=== PATIENT | female | born 1990 | race African-American/Black ===

== ENCOUNTER 2016-04-27 17:22 | Emergency (ER) | payer OTHER ==
[~2016-04-27] VITALS: Ht 162.6 cm; Wt 50.0 kg
[2016-04-27 17:22] VITALS: BP 127/87; PULSE 83; RESP 16; TEMP 99; O2SAT 98
[~2016-04-27 17:22] MED LIST: BACT800T5 PO; FERR325T PO
[2016-04-27] MEDS ORDERED: SODIUM CHLOR 0.9% 1000 ML INJ 1,000 ML IV ONE (17:46)
[2016-04-27] MEDS ORDERED: TETANUS/DIPHTHERIA TOXOID ADULT 0.5 ML VIAL IM ONE (18:00)
[2016-04-27 18:15] VITALS: BP 132/76; PULSE 75; RESP 18; O2SAT 99
--- NOTE | 2016-04-27 18:27 | PD ---
HPI Chief Complaint: Syncope/Near-Syncope Time Seen by Provider: 18:22 Travel History International Travel<30 days: No Contact w/Intl Traveler<30days: No Traveled to known affect area: No History of Present Illness HPI 25-year-old female that presents to the ED for evaluation of syncopal episode. Patient was brought here by ambulance. Patient was working at [employer] and apparently he was going to the bathroom when she felt very dizzy and lightheaded and last she remembers she woke up on the floor with somebody asking her if she was okay. She denies ever having like this before. Per patient she did that her lower lip. She denies any history of seizures. Per patient she did not eat today. No back pain or neck pain. No arm pain or leg pain. Denies any symptoms other than feeling somewhat weak. She denies any substance abuse. She denies any alcohol abuse. Per patient she was not doing anything exertional today but she did not eat which he attributes to the symptoms. She didn't loss consciousness. Unclear as to how long. Denies taking any blood thinners. Denies . Denies any bleeding. Does not know her last tetanus shot. No allergies to medication. Patient denies any pain at all. PFSH Past Medical History Anemia: Yes Diminished Hearing: No Immunizations Current: Yes ?: Unknown LMP: 04/03/16 Menopausal: No : 1 Para: 1 Past Surgical History Surgical History: No Previous Surgery Social History Alcohol Use: No Tobacco Use: No Substance Use: Yes (marijuana) Allergies-Medications (Allergen,Severity, Reaction): Coded Allergies: No Known Allergies (Verified , 04/27/16) Reported Meds & Prescriptions Reported Meds & Active Scripts Active Keflex (Cephalexin) 500 Mg Cap 500 Mg PO BID 7 Days Review of Systems Except as stated in HPI: all other systems reviewed are Neg Physical Exam Narrative GENERAL: SKIN: Warm and dry. HEAD: Atraumatic. Normocephalic. EYES: Pupils equal and round 4 mm reactive to light and accommodation. No scleral icterus. No injection or drainage. ENT: No nasal bleeding or discharge. Mucous membranes pink and moist. Tongue is midline. No blood deviation. Patient does have a superficial less than half a centimeter laceration to the left lower lip. Slightly bleeding. Slightly tender. NECK: Trachea midline. No JVD. CARDIOVASCULAR: Regular rate and rhythm. No murmurs, S3, S4. RESPIRATORY: No accessory muscle use. Clear to auscultation. Breath sounds equal bilaterally. GASTROINTESTINAL: Abdomen soft, non-tender, nondistended. Hepatic and splenic margins not palpable. MUSCULOSKELETAL: Extremities without clubbing, cyanosis, or edema. No obvious deformities. Full range of motion of the upper and lower x-rays bilaterally. 2 + pulses bilaterally. No cervical, thoracic, lumbar spine tenderness to palpation. NEUROLOGICAL: Awake and alert. No obvious cranial nerve deficits. Motor grossly within normal limits. Five out of 5 muscle strength in the arms and legs. Normal speech. PSYCHIATRIC: Appropriate mood and affect; insight and judgment normal. Data Data Last Documented VS Vital Signs Date Time Temp Pulse Resp B/P Pulse Ox O2 Delivery O2 Flow Rate FiO2 04/27/16 18:15 75 18 132/76 99 Room Air 04/27/16 17:22 99.0 Orders Electrocardiogram (04/27/16 17:46) Basic Metabolic Panel (Bmp) (04/27/16 17:46) Ed Urine Pregnancytest Poc (04/27/16 17:46) Complete Blood Count With Diff (04/27/16 17:46) Magnesium (Mg) (04/27/16 17:46) Urinalysis - C+S If Indicated (04/27/16 17:46) Chest, Single Ap (04/27/16 17:46) Ct Brain W/O Iv Contrast(Rout) (04/27/16 17:46) Iv Access Insert/Monitor (04/27/16 17:46) Sodium Chlor 0.9% 1000 Ml Inj (Ns 1000 M (04/27/16 17:46) Tetanus/Diphtheria Tox Adult (Tetanus/Di (04/27/16 18:00) Urine Culture (04/27/16 18:10) Potassium Chloride (Kcl) (04/27/16 19:15) Labs Laboratory Tests Test 04/27/16 04/27/16 18:00 18:10 White Blood Count 8.7 TH/MM3 Red Blood Count 4.38 MIL/MM3 Hemoglobin 10.3 GM/DL Hematocrit 33.0 % Mean Corpuscular Volume 75.4 FL Mean Corpuscular Hemoglobin 23.4 PG Mean Corpuscular Hemoglobin 31.1 % Concent Red Cell Distribution Width 17.4 % Platelet Count 232 TH/MM3 Mean Platelet Volume 8.2 FL Neutrophils (%) (Auto) 64.2 % Lymphocytes (%) (Auto) 23.4 % Monocytes (%) (Auto) 10.5 % Eosinophils (%) (Auto) 1.4 % Basophils (%) (Auto) 0.5 % Neutrophils # (Auto) 5.6 TH/MM3 Lymphocytes # (Auto) 2.0 TH/MM3 Monocytes # (Auto) 0.9 TH/MM3 Eosinophils # (Auto) 0.1 TH/MM3 Basophils # (Auto) 0.0 TH/MM3 CBC Comment AUTO DIFF Sodium Level 137 MEQ/L Potassium Level 3.3 MEQ/L Chloride Level 106 MEQ/L Carbon Dioxide Level 21.9 MEQ/L Anion Gap 9 MEQ/L Blood Urea Nitrogen 12 MG/DL Creatinine 0.65 MG/DL Estimat Glomerular Filtration 137 ML/MIN Rate Random Glucose 73 MG/DL Calcium Level 8.4 MG/DL Magnesium Level 2.3 MG/DL Urine Color YELLOW Urine Turbidity HAZY Urine pH 5.5 Urine Specific [place] 1.032 Urine Protein 30 mg/dL Urine Glucose (UA) NEG mg/dL Urine Ketones 40 mg/dL Urine Occult Blood NEG Urine Nitrite NEG Urine Bilirubin NEG Urine Urobilinogen 2.0 MG/DL Urine Leukocyte Esterase LARGE Urine WBC 88 /hpf Urine Squamous Epithelial 6 /hpf Cells Urine Bacteria FEW /hpf Urine Mucus MANY /lpf Microscopic Urinalysis Comment CULTURE INDICATED MDM Medical Decision Making Medical Screen Exam Complete: Yes Emergency Medical Condition: Yes Medical Record Reviewed: Yes Interpretation(s) CBC & BMP Diagram 04/27/16 18:00 CT head negative CXR negative UA shows UTI EKG shows sinus rhythm no sign of ischemia or arrhythmia Differential Diagnosis Syncope versus presyncope versus vasovagal episode versus head injury versus laceration to the lower lip versus electrolyte abnormality versus anemia Narrative Course 25-year-old female that presents to the ED for evaluation of syncopal episode. Patient was properly examined and was found to have signs and symptoms consistent appears to be syncopal episode. Likely vasovagal. At this time and do recommend labs and imaging a she's never been here before. She did hit her head when she fell and she does have signs of trauma to the lower lip. I do not suspect seizure. There was no history of seizures on her. This appears to be only from the fall. Patient agrees first proceed. Labs and imaging ordered. Labs and imaging were essentially unremarkable. From history and physical this appears to be a vasovagal episode. Likely from patient not eating. Patient does have a UTI. Patient will be given a prescription for Keflex. Worker's comp people respirated and. Patient was told to keep hydrated. Watch for signs of infection on the cut to the lip. I do not believe the patient requires any suturing and she agrees. Follow closely with PCP. See ED worsening symptoms. Diagnosis Primary Impression: Vaso vagal episode Patient Instructions: General Instructions Additional Instructions: Take medications as prescribed. Drink plenty of fluids. Follow with PCP. See ED worsening symptoms. Med/Other Pt SpecificInfo: Prescription(s) given Scripts Cephalexin (Keflex)500 Mg [id number] Mg PO BID 7 Days Prov:Rich Suggs MD 04/27/16 Disposition: 01 DISCHARGE HOME Condition: Stable Duncan Pearl Apr 27, 2016 18:27
[2016-04-27 18:35] LABS: AUTOMATED NEUTROPHIL # 5.6 TH/MM3 (1.8-7.7); BASOPHIL % 0.5 % (0.0-2.0); EOSINOPHIL # 0.1 TH/MM3 (0-0.4); EOSINOPHIL % 1.4 % (0.0-4.0); LYMPH % 23.4 % (9.0-44.0); MEAN CELL VOLUME 75.4 FL (80.0-100.0); MEAN CORPUSCULAR HEMOGLOBIN 23.4 PG (27.0-34.0); MEAN CORPUSCULAR HGB CONC 31.1 % (32.0-36.0); MONO % 10.5 % (0.0-8.0); NEUT % 64.2 % (16.0-70.0); PLATELET COUNT 232 TH/MM3 (150-450); RED BLOOD COUNT 4.38 MIL/MM3 (4.00-5.30); RED CELL DISTRIBUTION WIDTH 17.4 % (11.6-17.2); WHITE BLOOD COUNT 8.7 TH/MM3 (4.0-11.0)
[2016-04-27 18:50] LABS: BACTERIA, URINE FEW /hpf; BLOOD, URINE NEG (NEG); COMMENT (UR) CULTURE INDICATED; CULTURE IF INDICATED CULTURE INDICATED; GLUCOSE,URINE NEG (NEG); KETONE, URINE 40 mg/dL (NEG); MUCUS URINE MANY /lpf (OCC); NITRITE,URINE NEG (NEG); PH, URINE 5.5 (5.0-8.5); SQUAMOUS EPITHELIAL CELL URINE 6 /hpf (0-5); URINE COLOR YELLOW (YELLW/STRAW)
[2016-04-27 18:52] LABS: BICARBONATE 21.9 MEQ/L (21.0-32.0); MAGNESIUM 2.3 MG/DL (1.5-2.5); POTASSIUM 3.3 MEQ/L (3.5-5.1)
[2016-04-27 18:53] LABS: HEMO FLAGS AUTO DIFF
--- NOTE | 2016-04-27 19:08 | RADRPT ---
EXAM DATE/TIME: 04/27/2016 18:40 [facility] COMPARISON: No previous studies available for comparison. INDICATIONS : Syncopal episode with dizziness. RADIATION DOSE: 56.35 CTDIvol (mGy) MEDICAL HISTORY : None SURGICAL HISTORY : None. ENCOUNTER: Initial ACUITY: 1 day PAIN SCALE: 0/10 LOCATION: cranial TECHNIQUE: Multiple contiguous axial images were obtained of the head. Using automated exposure control and adj ustment of the mA and/or kV according to patient size, radiation dose was kept as low as reasonably a chievable to obtain optimal diagnostic quality images. FINDINGS: CEREBRUM: The ventricles are normal for age. No evidence of midline shift, mass lesion, hemorrhage or acute in farction. No extra-axial fluid collections are seen. POSTERIOR FOSSA: The cerebellum and brainstem are intact. The 4th ventricle is midline. The cerebellopontine angle i s unremarkable. EXTRACRANIAL: The visualized portion of the orbits is intact. SKULL: The calvaria is intact. No evidence of skull fracture. CONCLUSION: Normal examination. Charanjit Brennan MD on April 27, 2016 at 19:07 Board Certified Radiologist. This report was verified electronically.
--- NOTE | 2016-04-27 19:10 | RADRPT ---
EXAM DATE/TIME: 04/27/2016 18:53 [facility] COMPARISON: CHEST SINGLE AP, June 26, 2015, 0:14. INDICATIONS : Shortness of breath MEDICAL HISTORY : None. SURGICAL HISTORY : None. ENCOUNTER: Initial ACUITY: 1 day PAIN SCORE: 0/10 LOCATION: Bilateral chest FINDINGS: A single view of the chest demonstrates the lungs to be symmetrically aerated without evidence of mas s, infiltrate or effusion. The cardiomediastinal contours are unremarkable. Osseous structures are intact. CONCLUSION: Normal examination. Charanjit Brennan MD on April 27, 2016 at 19:08 Board Certified Radiologist. This report was verified electronically.
[2016-04-27] MEDS ORDERED: CEPH-460 PO (19:11)
[2016-04-27] MEDS ORDERED: POTASSIUM CHLORIDE 10 MEQ CONTROLLED RELEASE TAB PO ONE (19:15)
[2016-04-27 20:18] LABS: OVALOCYTES 1+ (NORMAL)
[2016-04-27 20:19] LABS: KERATOCYTES 1+ (NORMAL); PLATELET ESTIMATE SMEAR NORMAL (NORMAL); PLATELET MORPHOLOGY NORMAL (NORMAL); SCAN/DIFF AUTO DIFF CONFIRMED
--- NOTE | 2016-04-28 14:26 | EKG ---
Date Performed: 04/27/2016 Time Performed: 18:05:23 PTAGE: 25 years EKG: Sinus rhythm WITH SINUS ARRHYTHMIA NORMAL ECG Compared to prior tracing no significant change PREVIOUS TRACING : 06/26/2015 00.29 DOCTOR: Rei Ritter Interpretating Date/Time 04/28/2016 14:25:18
== END 2016-04-27 20:10 | disposition home or self-care (01) ==
LOC: NEPC 17:22
DX: R55 Syncope and collapse (principal); N39.0 Urinary tract infection, site not specified; B96.89 Other specified bacterial agents as the cause of diseases classified elsewhere; S01.511A Laceration without foreign body of lip, initial encounter; W19.XXXA Unspecified fall, initial encounter; Y92.511 Restaurant or cafe as the place of occurrence of the external cause; Z23 Encounter for immunization
CPT/HCPCS: 70450; 71010; 80048; 81001; 83735; 84703; 85025; 87086; 90471; 90714; 93005; 96360; 96361; 99285; J7030